=== PATIENT | male | born 2000 | race Hispanic/Latino ===

== ENCOUNTER 2022-11-01 11:24 | Emergency (ER) | payer SELFPAY ==
[2022-11-01] MEDS ORDERED: Morphine 4 MG/ML VIAL ONE (12:00)
[2022-11-01] MEDS ORDERED: Ondansetron PF 4 MG/2 ML Vial ONE (12:00)
[2022-11-01] MEDS ORDERED: Bupivacaine 0.25% 10 ML VIAL ONE (13:26)
[2022-11-01] MEDS ORDERED: Morphine 2 MG/ML VIAL SLOW IVP PRN (13:30)
[2022-11-01] MEDS ORDERED: Ondansetron ODT 4 MG TAB PO PRN (13:30)
[2022-11-01] MEDS ORDERED: Morphine 4 MG/ML VIAL SLOW IVP PRN (13:30)
[2022-11-01] MEDS ORDERED: traMADol HCl 50 MG TAB PO PRN ×2 (13:30)
[2022-11-01] MEDS ORDERED: Sodium Chloride 0.9% 1,000 ML IV SCH (13:30)
[2022-11-01] MEDS ORDERED: Ipratropium/Albuterol 3 ML NEB NEB PRN (13:30)
[2022-11-01] MEDS ORDERED: Ondansetron PF 4 MG/2 ML Vial IVP PRN (13:30)
[2022-11-01] MEDS ORDERED: Dextrose 5% in Water 1,000 ML IV PRN (13:30)
[2022-11-01] MEDS ORDERED: Dextrose 50% Abboject 50 ML SYRINGE SLOW IVP PRN (13:30)
[2022-11-01] MEDS ORDERED: Ketamine In 0.9 % NaCl 50 MG/5 ML SYRINGE ONE (13:36)
[2022-11-01] MEDS ORDERED: Acetaminophen 500 MG TAB PO SCH (18:00)
[2022-11-01] MEDS ORDERED: Famotidine 20 MG TAB PO SCH (21:00)
== END 2022-11-01 16:17 | disposition home or self-care (01) ==
LOC: ERS 11:24
DX: S52.502A Unspecified fracture of the lower end of left radius, initial encounter for closed fracture (principal); S00.81XA Abrasion of other part of head, initial encounter; W11.XXXA Fall on and from ladder, initial encounter
CPT/HCPCS: 25605; 70450; 70486; 71045; 72125; 93005; 96374; 99156; 99157; J2270; J2405; J3490; S0020

== ENCOUNTER 2022-12-19 14:24 | Emergency (ER) | payer SELFPAY | END 2022-12-19 16:03 | disposition home or self-care (01) | LOC: ERS 14:24 | DX: M25.532 Pain in left wrist (principal) | CPT/HCPCS: 99283 ==